=== PATIENT | male | born 1980 | race African-American/Black ===

== ENCOUNTER 2018-04-03 10:59 | Emergency (ER) | payer MEDICAID ==
[~2018-04-03] VITALS: Ht 175.3 cm; Wt 82.0 kg
[2018-04-03] MEDS ORDERED: IBUPROFEN 600MG TABLET PO ONE (12:30)
[2018-04-03 12:57] LABS: BASOPHILS % 0.6 % (0.0-2.0); EOSINOPHILS % 3.9 % (0.0-5.0); HEMATOCRIT. 37.1 % (42.0-52.0); HEMOGLOBIN. 12.6 g/dL (14.0-18.0); LYMPHOCYTES % 12.5 % (20.0-50.0); MEAN CORPUSCULAR HEMOGLOBIN 30.4 pg (28.0-32.0); MEAN CORPUSCULAR VOLUME 89.6 fL (80.0-94.0); MEAN PLATELET VOLUME 9.4 fl (7.4-10.4); MONOCYTES % 11.5 % (2.0-8.0); NEUTROPHILS % 71.5 % (40.0-76.0); PLATELET 220 x1000/uL (130-400); RED BLOOD CELL COUNT 4.14 mill/uL (4.7-6.1); RED CELL DISTRIBUTION WIDTH 13.6 % (11.6-14.6)
[2018-04-03 13:01] LABS: CHLORIDE 105 mEq/L (98-107)
[2018-04-03] MEDS ORDERED: VANCOMYCIN 1 G PREMIX 200 ML IV SCH (14:15)
[2018-04-03] MEDS ORDERED: IOHEXOL-300 100 ML BOTTLE ONE (14:30)
[2018-04-03] MEDS ORDERED: CLINDAMYCIN 300 MG in DEXTROSE 5% WATER 50 ML IV ONE (14:30)
[2018-04-03 16:10] VITALS: BP 133/82
== END 2018-04-03 16:15 | disposition home or self-care (01) ==
LOC: ER 11:42
DX: R22.0 Localized swelling, mass and lump, head (principal); F17.200 Nicotine dependence, unspecified, uncomplicated; Z93.3 Colostomy status; Z98.890 Other specified postprocedural states
CPT/HCPCS: 36415; 70487; 70491; 80048; 85025; 96365; 99285; J3490; Q9967; Z7610; J7060